=== PATIENT | female | born 1940 | race Caucasian/White ===

== ENCOUNTER 2018-11-08 16:22 | Emergency (ER) | payer MEDICARE, OTHER ==
[~2018-11-08] VITALS: Ht 160 cm; Wt 70.0 kg
[2018-11-08 16:35] VITALS: Ht 160 cm; Wt 70.0 kg
[2018-11-08] MEDS ORDERED: KETOROLAC 30 MG INJ IM STA (17:38)
[2018-11-08] MEDS ORDERED: TRAM50TA2 PO (20:11)
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
[2018-11-08 20:27] VITALS: BP 141/72; PULSE 72; RESP 16
== END 2018-11-08 20:28 | disposition home or self-care (01) ==
LOC: FTE 16:22
DX: S33.5XXA Sprain of ligaments of lumbar spine, initial encounter (principal); I10 Essential (primary) hypertension; V49.40XA Driver injured in collision with unspecified motor vehicles in traffic accident, initial encounter; Z98.61 Coronary angioplasty status
CPT/HCPCS: 72100; 96372; 99284; J1885